=== PATIENT | female | born 1980 | race Caucasian/White ===

== ENCOUNTER 2022-11-13 23:39 | Emergency (ER) | payer BC ==
[2022-11-14] MEDS ORDERED: Albuterol/Ipratropium 3.0-0.5 MG/3 ML Neb Soln NEB ONE (00:02)
[2022-11-14] MEDS ORDERED: methylPREDNISolone Sodium Succinate 125 MG/2 ML SDV IVPUSH ONE (00:02)
[2022-11-14] MEDS ORDERED: Ondansetron 4 MG/2 ML SDV IVPUSH ONE (00:09)
[2022-11-14] MEDS ORDERED: Metoclopramide 10 MG/2 ML SDV IVPUSH ONE (01:28)
[2022-11-14] MEDS ORDERED: Acetaminophen 325 MG Tab PO ONE (01:47)
[2022-11-14] MEDS ORDERED: Acetaminophen 325 MG Tab ONE (01:48)
[2022-11-14] MEDS ORDERED: Levalbuterol HCl 1.25 MG/3 ML Neb NEB ONE (01:51)
== END 2022-11-14 03:23 | disposition home or self-care (01) ==
LOC: JD.ED 23:39
DX: R06.02 Shortness of breath (principal); Z91.018 Allergy to other foods; Z86.16 Personal history of COVID-19
CPT/HCPCS: 36415; 71045; 80053; 83880; 84484; 85025; 93005; 94640; 96374; 96375; 99285; A9270; J2405; J2765; J2930; J7612; 93010; 99284; J7620-GY